=== PATIENT | female | born 1980 | race Caucasian/White ===

== ENCOUNTER 2023-09-02 11:31 | Outpatient (CLI) | payer BC, SELFPAY | END 2023-09-02 11:32 | disposition home or self-care (01) | PROVIDERS: Visit Provider Family Medicine | DX: Z00.00 Encounter for general adult medical examination without abnormal findings (principal); E78.5 Hyperlipidemia, unspecified; E55.9 Vitamin D deficiency, unspecified; E66.9 Obesity, unspecified; K76.0 Fatty (change of) liver, not elsewhere classified; R73.03 Prediabetes; F41.9 Anxiety disorder, unspecified; E28.2 Polycystic ovarian syndrome | CPT/HCPCS: 80053; 80061; 82306; 82607; 84443; 86706 ==

== ENCOUNTER 2023-12-01 12:52 | Outpatient (CLI) | payer BC, SELFPAY ==
--- OUTSIDE RECORDS SUMMARY | 2023-12-01 12:58 | XMS_ITS | Clinical Summary ---
Author Name Unknown Organization [facility] Address [address] [place] [address] Care Team Providers Care Driver Merchandiser Name Role Phone Unavailable Primary Care Provider Unavailabl e Source Comments PLEASE NOTE, if this patient is a minor, it may be UNLAWFUL to discuss sensitive information that is contained in these records (such as FAMILY PLANNING, MENTAL HEALTH or SUBSTANCE ABUSE) with the minor patient's parent or other person without the patient's specific authorization.[facility] Allergies No known active allergies Medications Medication Sig Dispensed Refills Start Date End Date Status multivitamin tablet Take 1 Tab by mouth once daily 90 Tab 3 03/08/2017 Active phentermine (ADIPEX-P) 37.5 mg tablet Take 37.5 mg by mouth 0 04/04/2021 Active metFORMIN (GLUCOPHAGE-XR) 500 mg 24 hr tablet Take 2,000 mg by mouth 0 10/30/2020 Active Active Problems Problem Noted Date Diagnosed Date NAFLD (nonalcoholic fatty liver disease) 019 Screening for malignant neoplasm 03/03/2019 Overview: 02/25/19 - [facility] [address] [facility] [place] Thomas Tejada @ [facility] . Pap/HPV -n/a. Mammogram- ordered. Plan: Pap due 03/24/21. Mammo negative due 02/26/20 Copy of form sent to HIM to scan and Original sent to [facility] to process for billing. Jerica Kimball MA, 03/03/2019 9:48 AM Metabolic syndrome 02/28/2019 Stress 06/05/2017 Overview: Parent of child with autism. Discoloration of skin of hand 03/03/2017 Overview: 03/03/17 complained of intermittent yellowing of palms bilaterally. CMP normal on 02/13. No other s/s jaundice. Exam normal today. Prediabetes 02/16/2017 Irregular periods 02/13/2017 Chronic allergic conjunctivitis 12/12/2016 Vitamin D deficiency 03/16/2016 History of wheezing 02/23/2016 Overview: 02/2016: Spirometry done (lower quality test due to rounded peaks) was normal. Plan: Trial treating allergic rhinitis with Flonase and Cetirizine and Albuterol PRN for wheezing. 03/14/16: Wheezing resolved Complication related to 03/13/2008 Obesity (BMI 30-39.9) Hyperlipidemia Immunizations Name Administration Dates Next Due Flu, Preservative Free 03/03/2017 Hep B, Adult/Adol (ENERGIX/RECOMBIVAX) 9,03/13/2008 INFLUENZA, UNSPECIFIED FORMULATION 09/03/2020,,10/26/2015 MMR (MMR II/Priorix) 02/25/2019 PPD 02/22/2008 TDAP 03/24/2016 Td(adult),2 Lf tetanus toxoi d,preservative free 11/16/2003 Family History Medical History Relation Name Comments Hypertension Father Hypertension Mother Cancer Other breast cancer ( niece), lung cancer (cousin who smoked), brain cancer (cousin) Diabetes Paternal Grandmother Asthma Sister Blindness Neg Cataracts Neg Glaucoma Neg Relation Name Status Comments Father Mother Other Paternal Grandmother Sister Social History Tobacco Use Types Packs/Day Years Used Date Smoking Tobacco: Never Alcohol Use Standard Drinks/Week Comments No 0 (1 standard drink = 0.6 oz pur e alcohol) Social Connections Answer Date Recorded Social Connections and Isolation 0 05/17/2021 Financial Resource Strain Answer Date R ecorded Financial Resource Strain 0 2020 Stress Answer Date Recorded Stress 0 05/17/2021 Physical Activity Answer Date Recorded Physical Activity 0 05/17/2021 Food Insecurity Answer Date Recorded Food 0 05/17/2021 Transportation Needs Answer Date Record ed Transportation 0 05/17/2021 Housing Stability Answer Date Recorded Housing 0 05/17/2021 Safety and Environment Answer Date Juan rded Safety 0 05/17/2021 Utilities Answer Date Recorded Utilities 0 05/17/2021 Employment Answer Date Recorded Employment 0 05/17/2021 Sex and Gender Information Value Date Recorded Sex Assigned at Female 06/05/2017 6:10 AM PDT Gender Identity Female Sexual Orientation Straight Last Filed Vital Signs Vital Sign Reading Time Taken Comments Blood Pressure 125/79 05/17/2021 4:01 PM CDT Pulse 91 05/17/2021 4:01 PM CDT Temperature 36.7 ??C (98 ??F) 06/05/2017 8:08 AM CDT Respiratory Rate 16 05/17/2021 4:01 PM CDT Oxygen Saturation - - Inhaled Oxygen Concentration - - Weight 78 kg (172 lb) 05/17/2021 4:01 PM CDT Height 152.4 cm (5') 05/17/2021 4:01 PM CDT Body Mass Index 33.59 05/17/2021 4:01 PM CDT Plan of Treatment Health Maintenance Due Date Last Done Comments HPV Screening 1978 Hepatitis C Screening 1978 Tobacco Screening 1978 HIV Screening 1993 Relationship Safety Screening/Counseling 1993 Diabetes Screening 06/05/2018 06/05/2017, 0 06/05/2017, 02/13/2017, Additional history exists Imm-Hepatitis B (3 of 3 - 19 + 3-dose series) 04/22/2019 02/25/2019, 03/13/2008 Cervical Cancer Screening 03/24/2021 Pap + HPV 03/24/2021 03/24/2016 Pap Smear 03/24/2021 03/24/2016, 05/24/2010 Lipid Screening 03/03/2022 03/03/2017, 03/24/2016 Hypertension Screening (#1) 05/17/2022 [id number] (2 - 2022- season) 2023 021 Imm-Influenza (#1) 2023 09/03/2020, 1 12/20/2018, 03/03/2017, Additional history exists Alcohol and Drug Screen 11/16/2023 03/03/2017 Depression Annual Screen 11/16/2023 05/21/2021 Imm-DTaP/Tdap/Td (2 - Td or Tdap) 03/24/2026 016, 11/16/2003 Cervical Ablation/Cold-Knife Conization Discontinued Cervical Cryotherapy Discontinued Colposcopy Discontinued Endometrial Biopsy Discontinued Excision/Leep Discontinued HPV Genotyping Discontinued Vaginal Pap Discontinued Vulvoscopy Discontinued Goals Goal Patient Goal Type Associated Problems Recent Progress Patient-Stated? Author Cut out extra servings of starches Diet No Romaine Alonzo LPN Decrease soda or juice intake Diet No Romaine Alonzo LPN Eat breakfast Diet No Romaine Alonzo LPN Eat more fruits and vegetables Diet No oRmaine Alonzo LPN Have 3 meals a day Diet No Romaine Alonzo LPN Drink more than 8 glasses of water Lifestyle No Romaine Alonzo LPN Exercise 30 minutes daily Lifestyle No Romaine Alonzo LPN HEMOGLOBIN A1C < 5.6 Result Component 5.9( 7 9:22 AM CDT) No Romaine Alonzo LPN LDL < 100 Result Component 138( 7 9:22 AM CDT) No Romaine Alonzo LPN Weight < 160 lb (72.576 kg) Weight 172 lb (78 kg)( 4:01 PM CDT) No Romaine Alonzo LPN
--- NOTE | 2023-12-01 13:00 | CRLHL7_ITS ---
For Patients: As a result of the Century Cures Act, medical imaging exams and procedure reports are released immediately into your electronic medical record. You may view this report before your referring provider. If you have questions, please contact your health care provider. BILATERAL SCREENING MAMMOGRAM WITH COMPUTER-AIDED DETECTION AND TOMOSYNTHESIS TECHNIQUE: CC and MLO views were obtained. These mammographic images have been obtained using full-field digital technique. These mammographic images were interpreted with the benefit of computer-aided detection. Breast Tomosynthesis was used in this interpretation. COMPARISON FILM: 10/31/22, 11/06/21, 09/26/20. FINDINGS: There are scattered areas of fibroglandular density. IMPRESSION: There is no radiographic evidence for malignancy. ASSESSMENT: BI-RADS Category 1: Negative RECOMMENDATION: Routine screening mammogram in 1 year. A lay language report of this examination will be provided to the patient. Girish Moura M.D. Diagnostic Radiologist [email or web address] SP/Dictated by: Girish Moura MD @ 12/04/2023 11:14:00 AM (Electronically Signed)
== END 2023-12-01 12:53 | disposition home or self-care (01) ==
PROVIDERS: PCP Family Medicine; Visit Provider Family Medicine
DX: Z12.31 Encounter for screening mammogram for malignant neoplasm of breast (principal)
CPT/HCPCS: 77063; 77067; T1013

== ENCOUNTER 2023-12-04 08:28 | Outpatient (CLI) | payer BC, SELFPAY ==
--- OUTSIDE RECORDS SUMMARY | 2023-12-07 11:32 | XMS_ITS | Clinical Summary ---
Author Name Unknown Organization [facility] Address [address] [place] [address] Care Team Providers Care Vice President Talent Management Name Role Phone Unavailable Primary Care Provider [...] for malignant neoplasm 03/03/2019 Overview: 02/25/19 - [facility] [address] [facility] [place] visit with Thomas Tejada @ [facility] . Pap/HPV -n/a. Mammogram- ordered. Plan: Pap [...] 03/03/2022 03/03/2017, 03/24/2016 Hypertension Screening (#1) 05/17/2022 [id number] ( season) 2023 021 Imm-Influenza (#1) 2023 09/03/2020, 1 12/20/2018, 03/03/2017, Additional history exists Alcohol and Drug Screen 11/16/2023 03/03/2017 Depression Annual Screen 11/16/2023 05/21/2021 CT Colonography 2023 Colonoscopy 2023 Colorectal Cancer Screening 2023 FIT/gFOBT 2023 Fecal DNA 2023 Flexible Sigmoidoscopy 2023 Imm-DTaP/Tdap/Td (2 - Td or Tdap) 03/24/2026 016, 11/16/2003 Cervical Ablation/Cold-Knife Conization Discontinued Cervical Cryotherapy Discontinued Colposcopy Discontinued Endometrial Biopsy Discontinued Excision/Leep Discontinued HPV Genotyping Discontinued Vaginal Pap Discontinued Vulvoscopy Discontinued Goals Goal Patient Goal Type Associated Problems Recent Progress Patient-Stated? Author Cut out extra servings of starches Diet No Romaine Alonzo REAL ESTATE ASSOCIATE Decrease soda or juice intake Diet No Romaine Alonzo LPN Eat breakfast Diet No Romaine Alonzo REAL ESTATE ASSOCIATE Eat more fruits and vegetables Diet No Romaine Alonzo REAL ESTATE ASSOCIATE Have 3 meals a day Diet No Romaine Alonzo REAL ESTATE ASSOCIATE Drink more than 8 glasses of water Lifestyle No Romaine Alonzo LPN Exercise 30 minutes daily Lifestyle No Romaine Alonzo REAL ESTATE ASSOCIATE HEMOGLOBIN A1C < 5.6 Result Component 5.9( 7 9:22 AM CDT) No Romaine Alonzo REAL ESTATE ASSOCIATE LDL < 100 Result Component 138( 7 9:22 AM CDT) No Romaine Alonzo REAL ESTATE ASSOCIATE Weight < 160 lb (72.576 kg) Weight 172 lb (78 kg)( 4:01 PM CDT) No Romaine Alonzo LPN
== END 2023-12-04 08:29 | disposition home or self-care (01) ==
LOC: NFLDREF 12-07 11:27
PROVIDERS: PCP Family Medicine; Visit Provider Family Medicine
DX: E55.9 Vitamin D deficiency, unspecified (principal); E78.5 Hyperlipidemia, unspecified; K76.0 Fatty (change of) liver, not elsewhere classified; R73.03 Prediabetes
CPT/HCPCS: 80053; 80061; 82306

== ENCOUNTER 2024-01-11 06:32 | Outpatient (CLI) | payer BC, SELFPAY ==
--- NOTE | 2024-01-11 07:43 | W.ANESCHARGE ---
Anesthesia Charges Start Date/Time Anesthesia Start Date: 01/11/24 Anesthesia Start Time: 07:20 Stop Date/Time Anesthesia Stop Date: 01/11/24 Anesthesia Stop Time: 07:40
--- NOTE | 2024-01-11 11:24 | W.ANESCHARGE ---
Anesthesia Charges Start Date/Time Anesthesia Start Date: 01/11/24 Anesthesia Start Time: 07:20 Stop Date/Time Anesthesia Stop Date: 01/11/24 Anesthesia Stop Time: 07:40
== END 2024-01-11 06:33 | disposition home or self-care (01) ==
LOC: OP CLINIC 06:33
PROVIDERS: PCP Family Medicine; Visit Provider Internal Medicine
DX: Z12.11 Encounter for screening for malignant neoplasm of colon (principal)
CPT/HCPCS: 00812; 45378; T1013; J2704

== ENCOUNTER 2024-03-04 08:05 | Outpatient (CLI) | payer BC, SELFPAY ==
--- OUTSIDE RECORDS SUMMARY | 2024-03-07 07:10 | XMS_ITS | Clinical Summary ---
Author Name Unknown Organization [facility] Address [address] [place] [address] Care Team Providers Care Geography Teacher Name Role Phone Unavailable Primary Care Provider [...] mg tablet Take 37.5 mg by mouth 04/04/2021 Active metFORMIN (GLUCOPHAGE-XR) 500 mg 24 hr tablet Take 2,000 mg by mouth 10/30/2020 Active Active Problems Problem Noted Date Diagnosed Date NAFLD (nonalcoholic fatty liver disease) 019 Screening for malignant neoplasm 03/03/2019 Overview: 02/25/19 - [place] [id number] [place] visit with Thomas Tejada @ [facility] . Pap/HPV -n/a. Mammogram- ordered. Plan: Pap due 03/24/21. Mammo negative due 02/26/20 Copy of form sent to HIM to scan and Original sent to MD to process for billing. Jerica Kimball MA, [...] 03/03/2022 03/03/2017, 03/24/2016 Hypertension Screening (#1) 05/17/2022 [id number] ( season) 2023 021 Alcohol and Drug Screen 11/16/2023 03/03/2017 Depression Annual Screen 11/16/2023 05/21/2021 CT Colonography 2023 Colonoscopy 2023 Colorectal Cancer Screening 2023 FIT/gFOBT 2023 Fecal DNA 2023 Flexible Sigmoidoscopy 2023 Imm-Influenza (Season Ended) 2024, 10/19/2019, 03/03/2017, Additional history exists Imm-DTaP/Tdap/Td (2 - Td or Tdap) 03/24/2026 016, 11/16/2003 Cervical Ablation/Cold-Knife Conization Discontinued Cervical Cryotherapy Discontinued Colposcopy Discontinued Endometrial Biopsy Discontinued Excision/Leep Discontinued HPV Genotyping Discontinued Vaginal Pap Discontinued Vulvoscopy Discontinued Goals Goal Patient Goal Type Associated Problems Recent Progress Patient-Stated? Author Cut out extra servings of starches Diet No Romaine Alonzo PERSONAL INJURY LEGAL ASSISTANT Decrease soda or juice intake Diet No Wes Alonzodo PERSONAL INJURY LEGAL ASSISTANT Eat breakfast Diet No AlonzoWesdo, PERSONAL INJURY LEGAL ASSISTANT Eat more fruits and vegetables Diet No AlonzoValentinoRomaine, PERSONAL INJURY LEGAL ASSISTANT Have 3 meals a day Diet No Romaine Alonzo PERSONAL INJURY LEGAL ASSISTANT Drink more than 8 glasses of water Lifestyle No Romaine Alonzo PERSONAL INJURY LEGAL ASSISTANT Exercise 30 minutes daily Lifestyle No Wes Alonzodo PERSONAL INJURY LEGAL ASSISTANT HEMOGLOBIN A1C < 5.6 Result Component 5.9( 7 9:22 AM CDT) No Wes Alonzodo, PERSONAL INJURY LEGAL ASSISTANT LDL < 100 Result Component 138( 7 9:22 AM CDT) No Wes Alonzodo PERSONAL INJURY LEGAL ASSISTANT Weight < 160 lb (72.576 kg) Weight 172 lb (78 kg)( 4:01 PM CDT) No Wes Alonzodo PERSONAL INJURY LEGAL ASSISTANT Procedures Procedure Name Priority Date/Time Associated Diagnosis Comments GLUCOSE FASTING (POCT) 53981 Routine 06/05/2017 9:22 AM CDT Prediabetes LIPID PANEL W/TOT CHOL/HDL RATIO Routine 03/03/2017 9:22 AM CDT Other hyperlipidemia PAP (LB,IG) + HR HPV DNA W/RFLX HARRIS 16 & 18 Routine 03/24/2016 10:38 AM CDT Physical exam, annual from Last 3 Months or Most Recently Relevant to Health Maintenance Results * GLUCOSE FASTING (POCT) 37546 (06/05/2017 9:22 AM CDT) [facility]ING [facility] [place] PO[facility] Blood specimen (specimen) Blood / Unknown 06/05/2017 9:22 AM CDT Moni Hyman FACING END TRIMMER,ENDOCRINOLOGIST LAB - BLOOD TIM [facility] [place] POCT LAB [address] [id number], * (ABNORMAL) LIPID PANEL W/TOT CHOL/HDL RATIO (03/03/2017 9:22 AM CDT) CHOLESTEROL, TOTAL 210(H) 100 - 199 mg/dL [facility] TRIGLYCERIDES 153(H) 0 - 149 mg/dL [facility] HDL CHOLESTEROL 41 >39 mg/dL [facility] VLDL CHOLESTEROL CHARU 31 5 - 40 mg/dL [facility] LDL CHOLESTEROL CALC 138(H) 0 - 99 mg/dL [facility] T. CHOL/HDL RATIO 5.1(H) 0.0 - 4.4 ratio units [facility] Comment: ? T. Chol/HDL Ratio ? Men ??Women ? 1/2 Avg.Risk ??3.4 ?3.3 ? Avg.Risk ??5.0 ?4.4 ?2X Avg.Risk ??9.6 ?7.1 ?3X Avg.Risk 23.4 ?? 11.0 Blood specimen (specimen) Blood / Unknown 03/03/2017 9:22 AM CDT 03/04/2017 Narrative [facility] - 03/04/2017 10:12 AM CDT Performed at: ??01 - [facility] [address] [place], [place] [id number] Cushion Builder: Kaleb Greenfield MD, Phone: ??[phone] Justa Tom FACING END TRIMMER,DNP LAB - BLOOD DRAW [facility] * PAP (LB,IG) + HR HPV DNA W/RFLX HARRIS 16 & 18 (03/24/2016 10:38 AM CDT) DIAGNOSIS [facility] Comment: NEGATIVE FOR INTRAEPITHELIAL LESION AND MALIGNANCY. REACTIVE CELLULAR CHANGES AND/OR REPAIR ARE PRESENT. SPECIMEN ADEQUACY [facility] Comment:Satisfactory for tobi luation. No endocervical component is identified. CLINICIAN PROVIDED ICD10 [facility] Comment:[id number] PERFORMED BY [facility] Comment: Lucrecia Choe Pasting Machine Offbearer (ASCP) Reviewed at: ??[facility] ?[address] ?[place] [address] SIGNED OUT BY [facility] Comment:Liz Quintana MD, P athologist [place]TOSTAIN . [facility] NOTE [facility] Comment: The Pap smear is a screening test designed to aid in the detection of premalignant and malignant conditions of the uterine cervix. ??It is not a diagnostic procedure and should not be used as the sole means of detecting cervical cancer. ??Both false-positive and false-negative reports do occur. ? . TEST METHODOLOGY [facility] Comment: This liquid based SurePath(R) pap test was screened with the assistance of an image guided system. HPV, HIGH-RISK Negative Negative [facility] Comment: This high-risk HPV test detects thirteen high-risk types (16/18/31/33/35/39/45/51/52/56/58/59/68) without differentiation. ?. Specimen from uterine cervix (specimen) Cervix uteri structure / Unknown 03/24/2016 10:38 AM CDT 03/25/2016 3:35 PM CDT Narrative [facility] - 03/27/2016 10:14 AM CDT Source.............Cervical No. of containers..01 TriPath Collection Vial Performed at: ??01 - [facility] [place] [address] [place], [place] ??[id number] Cushion Builder: Chanel Garcias MD, Phone: ??[phone] Performed at: ??02 - [facility] [place] [address] [place], [place] ??[id number] Cushion Builder: Chanel Garcias MD, Phone: ??[phone] Carolyn Julio APRN, DNP LAB - NO BLOOD DRAW [facility] [address] [place], [place] [facility] from Last 3 Months or Most Recently Relevant to Health Maintenance
== END 2024-03-04 08:06 | disposition home or self-care (01) ==
LOC: NFLDREF 03-07 07:09
PROVIDERS: PCP Family Medicine; Referring Provider Family Medicine; Visit Provider Family Medicine
DX: E55.9 Vitamin D deficiency, unspecified (principal); E78.5 Hyperlipidemia, unspecified; R73.03 Prediabetes; M81.0 Age-related osteoporosis without current pathological fracture
CPT/HCPCS: 80053; 80061; 82306

== ENCOUNTER 2024-06-10 08:25 | Outpatient (CLI) | payer BC, SELFPAY ==
--- OUTSIDE RECORDS SUMMARY | 2024-06-13 09:24 | XMS_ITS | Clinical Summary ---
Author Organization [facility] Address [address] [place] [address] Care Team Providers Care Sustainability Project Coordinator Name Role Phone Unavailable Primary Care Provider [...] for malignant neoplasm 03/03/2019 Overview: 02/25/19 - [facility] [address] [facility] [place] visit with Thomas Tejada @ [facility] . Pap/HPV -n/a. Mammogram- ordered. Plan: [...] 05/17/2021 4:01 PM CDT Plan of Treatment Not on file Goals Goal Patient Goal Type Associated Problems Recent Progress Patient-Stated? Author Cut out extra servings of starches Diet No Romaine Alonzo HAIRSPRING I INSPECTOR Decrease soda or juice intake Diet No Romaine Alonzo LPN Eat breakfast Diet No Romaine Alonzo HAIRSPRING I INSPECTOR Eat more fruits and vegetables Diet No Wes Alonzodo HAIRSPRING I INSPECTOR Have 3 meals a day Diet No Wes Alonzodo, HAIRSPRING I INSPECTOR Drink more than 8 glasses of water Lifestyle No Romaine Alonzo HAIRSPRING I INSPECTOR Exercise 30 minutes daily Lifestyle No Romaine Alonzo HAIRSPRING I INSPECTOR HEMOGLOBIN A1C < 5.6 Result Component 5.9( 7 9:22 AM CDT) No Romaine Alonzo HAIRSPRING I INSPECTOR LDL < 100 Result Component 138( 7 9:22 AM CDT) No Romaine Alonzo HAIRSPRING I INSPECTOR Weight < 160 lb (72.576 kg) Weight 172 lb (78 kg)( 4:01 PM CDT) No Romaine Alonzo HAIRSPRING I INSPECTOR
== END 2024-06-10 08:26 | disposition home or self-care (01) ==
LOC: NFLDREF 06-13 09:19
PROVIDERS: PCP Family Medicine; Referring Provider Family Medicine; Visit Provider Family Medicine
DX: E11.9 Type 2 diabetes mellitus without complications (principal); E55.9 Vitamin D deficiency, unspecified; K76.0 Fatty (change of) liver, not elsewhere classified; E66.9 Obesity, unspecified
CPT/HCPCS: 80053; 82043; 82306; 82570

== ENCOUNTER 2024-09-09 09:23 | Outpatient (CLI) | payer BC, SELFPAY ==
--- OUTSIDE RECORDS SUMMARY | 2024-09-10 19:42 | XMS_ITS | Clinical Summary ---
Author Organization [facility] Address [address] [place] [address] Care Team Providers Care Perfect Binder Operator Name Role Phone Unavailable Primary Care Provider [...] disease) 019 Screening for malignant neoplasm 03/03/2019 Overview (05/17/2021): 02/25/19 - [facility] [address] [facility] [place] [facility] . Pap/HPV -n/a. Mammogram- ordered. Plan: Pap due 03/24/21. Mammo negative due 02/26/20 Copy of form sent to HIM to scan and Original sent to MD to process for billing. Jerica Kimball MA, 03/03/2019 9:48 AM Metabolic syndrome 02/28/2019 Stress 06/05/2017 Overview (06/05/2017): Parent of child with autism. Discoloration of skin of hand 03/03/2017 Overview (03/03/2017): 03/03/17 complained of intermittent yellowing of palms bilaterally. CMP normal on 02/13. No other s/s jaundice. Exam normal today. Prediabetes 02/16/2017 Irregular periods 02/13/2017 Chronic allergic conjunctivitis 12/12/2016 Vitamin D deficiency 03/16/2016 History of wheezing 02/23/2016 Overview (03/16/2016): 02/2016: Spirometry done (lower quality test due to rounded peaks) was normal. Plan: Trial treating allergic rhinitis with Flonase and Cetirizine and Albuterol PRN for wheezing. 03/14/16: Wheezing resolved Complication related to 03/13/2008 Obesity (BMI 30-39.9) Hyperlipidemia Immunizations Name Administration Dates Next Due Flu, Preservative Free 03/03/2017 Hep B, Adult/Adol (ENERGIX/RECOMBIVAX) 9,03/13/2008 INFLUENZA, UNSPECIFIED 09/03/2020,10/19/2019,09/2015 MMR (MMR II/Priorix) 02/25/2019 PPD 02/22/2008 TDAP [...] e alcohol) Social Connections Answer Date Recorded Connectedness 0 08/04/2024 Financial Resource Strain Answer Date R ecorded Financial Resource Strain 0 2023 Stress Answer Date Recorded Stress 0 06/29/2024 Physical Activity Answer Date Recorded Physical Activity 0 06/29/2024 Food Insecurity Answer Date Recorded Food 0 08/11/2024 Transportation Needs Answer Date Record ed Transportation 0 06/29/2024 Housing Stability Answer Date Recorded Housing 0 06/29/2024 Safety and Environment Answer Date Juan rded Safety 0 06/29/2024 Utilities Answer Date Recorded Utilities 0 06/29/2024 Employment Answer Date Recorded Stress 0 08/04/2024 Sex and Gender Information Value Date Recorded [...] 05/17/2021 4:01 PM CDT Plan of Treatment Upcoming Encounters Date Type Department Care Team (Late st Contact Info) Description 09/14/2024 1:00 PM CDT Office Visit [facility] [address] [place] [phone] Keya Fletcher, OD [address] [place] [phone] Health Maintenance Due Date Last Done Comments HPV Screening 1978 Hepatitis C Screening 1978 Tobacco Screening 1978 HIV Screening 1993 Relationship Safety Screening/Counseling 1993 Annual Preventive Care Visit 03/03/2018 03/03/2017, 03/24/2016 Diabetes Screening 06/05/2018 06/05/2017, 0 06/05/2017, 02/13/2017, Additional history exists Breast Cancer Screening (Mammogram) 2018 Imm-Hepatitis B (3 of 3 - 19 + 3-dose series) 04/22/2019 02/25/2019, 03/13/2008 Cervical Cancer Screening 03/24/2021 Pap + HPV 03/24/2021 03/24/2016 Pap Smear 03/24/2021 03/24/2016, 05/24/2010 Lipid Screening 03/03/2022 03/03/2017, 03/24/2016 Hypertension Screening (#1) 05/17/2022 Alcohol and Drug Screen 11/16/2023 03/03/2017 Depression Annual Screen 11/16/2023 05/21/2021 CT Colonography 2023 Colonoscopy 2023 Colorectal Cancer Screening 2023 FIT/gFOBT 2023 Fecal DNA 2023 Flexible Sigmoidoscopy 2023 Sot-QTFUU-03 ( season) 2024 11/23/2021, 02/14/2021, 01/09/2021 Imm-Influenza (#1) 2024 12/22/2022, 1 , 10/19/2019, Additional history exists Imm-DTaP/Tdap/Td (2 - Td or Tdap) 03/24/2026 016, 11/16/2003 Cervical Ablation/Cold-Knife Conization Discontinued Cervical Cryotherapy Discontinued Colposcopy Discontinued Endometrial Biopsy Discontinued Excision/Leep Discontinued HPV Genotyping Discontinued Vaginal Pap Discontinued Vulvoscopy Discontinued Goals Goal Patient Goal Type Associated Problems Recent Progress Patient-Stated? Author Cut out extra servings of starches Diet No Wes Alonzodo, LAYOUT MECHANIC Decrease soda or juice intake Diet No Romaine Alonzo LAYOUT MECHANIC Eat breakfast Diet No Wes Alonzodo LAYOUT MECHANIC Eat more fruits and vegetables Diet No Valentino Alonzobaldo LAYOUT MECHANIC Have 3 meals a day Diet No Valentino Alonzobaldo, LAYOUT MECHANIC Drink more than 8 glasses of water Lifestyle No Valentino Alonzobaldo, LAYOUT MECHANIC Exercise 30 minutes daily Lifestyle No Valentino Alonzobaldo, LAYOUT MECHANIC HEMOGLOBIN A1C < 5.6 Result Component 5.9( 7 9:22 AM CDT) No Romaine Alonzo LAYOUT MECHANIC LDL < 100 Result Component 138( 7 9:22 AM CDT) No Romaine Alonzo, LAYOUT MECHANIC Weight < 160 lb (72.576 kg) Weight 172 lb (78 kg)( 4:01 PM CDT) No Romaine Alonzo LPN Procedures Procedure Name Priority Date/Time Associated Diagnosis Comments GLUCOSE FASTING (POCT) 03500 Routine 06/05/2017 9:22 AM CDT Prediabetes LIPID PANEL W/TOT CHOL/HDL RATIO Routine 03/03/2017 9:22 AM CDT Other hyperlipidemia PAP (LB,IG) + HR HPV DNA W/RFLX HARRIS 16 & 18 Routine 03/24/2016 10:38 AM CDT Physical exam, annual from Last 3 Months or Most Recently Relevant to Health Maintenance Results * GLUCOSE FASTING (POCT) 67910 (06/05/2017 9:22 AM CDT) GLUCOSE FASTING 87 95 [facility] [place] [facility] Blood specimen (specimen) Blood / Unknown 06/05/2017 9:22 AM CDT Moni Hyman APRN,AIR ANALYST LAB - BLOOD DRA Brit[facility] [place] [facility] [address] [place] [id number], * (ABNORMAL) LIPID PANEL W/TOT CHOL/HDL RATIO [...] AM CDT Performed at: ??01 - [facility] [address] [place], [place] ??[id number] [employer] Supervisor: Kaleb Greenfield MD, Phone: ??[phone] Justa Tom ENROLLMENT ELIGIBILITY REPRESENTATIVE,DNP LAB - BLOOD DRAW [facility] * PAP (LB,IG) + HR HPV DNA W/RFLX HARRIS 16 & 18 (03/24/2016 10:38 AM CDT) DIAGNOSIS [facility] Comment: NEGATIVE FOR INTRAEPITHELIAL LESION AND MALIGNANCY. REACTIVE CELLULAR CHANGES AND/OR REPAIR ARE PRESENT. SPECIMEN ADEQUACY [facility] Comment:Satisfactory for tobi luation. No endocervical component is identified. CLINICIAN PROVIDED ICD10 [facility] Comment:[id number] PERFORMED BY [facility] Comment: Lucrecia Choe, Fresh Food Manager (ASC) Reviewed at: ??[facility] ?[address] ?[place] [address] SIGNED OUT BY [facility] Comment:Liz Quintana MD, [...] image guided system. HPV, HIGH-RISK Negative Negative [facility] Comment: This high-risk HPV test detects thirteen high-risk types (16/18/31/33/35/39/45/51/52/56/58/59/68) without differentiation. ?. Specimen from uterine cervix (specimen) Cervix uteri structure / Unknown 03/24/2016 10:38 AM CDT 03/25/2016 3:35 PM CDT Narrative [facility] - 03/27/2016 10:14 AM CDT Source.............Cervical No. of containers..01 [facility] Collection Vial Performed at: ??01 - [facility] [address] [place], [place] ??[id number] [employer] Supervisor: Chanel Garcias MD, Phone: ??[phone] Performed at: ??02 - [facility] [address] [place], [place] ??[id number] [employer] Supervisor: Chanel Garcias MD, Phone: ??[phone] Carolyn Julio APRN, DNP LAB - NO BLOOD DRAW [facility] [place], [place] [facility] from Last 3 Months or Most Recently Relevant to Health Maintenance
== END 2024-09-09 09:24 | disposition home or self-care (01) ==
PROVIDERS: PCP Family Medicine; Referring Provider Family Medicine; Visit Provider Family Medicine
DX: E78.5 Hyperlipidemia, unspecified (principal); E55.9 Vitamin D deficiency, unspecified; E11.9 Type 2 diabetes mellitus without complications; K76.0 Fatty (change of) liver, not elsewhere classified; M81.0 Age-related osteoporosis without current pathological fracture; Z79.899 Other long term (current) drug therapy
CPT/HCPCS: 80053; 80061; 82306; 82607

== ENCOUNTER 2025-08-18 08:25 | Outpatient (CLI) | payer BC, SELFPAY | END 2025-08-18 08:26 | disposition home or self-care (01) | LOC: NFLDREF 08-21 12:00 | PROVIDERS: PCP Family Medicine; Referring Provider Family Medicine; Visit Provider Family Medicine | DX: E11.9 Type 2 diabetes mellitus without complications (principal); K76.0 Fatty (change of) liver, not elsewhere classified; E78.5 Hyperlipidemia, unspecified; E55.9 Vitamin D deficiency, unspecified | CPT/HCPCS: 80053; 80061; 82043; 82570 ==

== ENCOUNTER 2025-11-03 07:32 | Outpatient (CLI) | payer BC, SELFPAY | END 2025-11-03 07:33 | disposition home or self-care (01) | LOC: NFLDREF 11-08 21:30 | PROVIDERS: PCP Family Medicine; Referring Provider Family Medicine; Visit Provider Family Medicine | DX: E11.9 Type 2 diabetes mellitus without complications (principal); E78.5 Hyperlipidemia, unspecified; E55.9 Vitamin D deficiency, unspecified; K76.0 Fatty (change of) liver, not elsewhere classified | CPT/HCPCS: 80053; 80061; 82607 ==